=== PATIENT | male | born 1955 | race Caucasian/White ===

== ENCOUNTER 2017-05-08 07:10 | Day surgery (SDC) | payer OTHER ==
[~2017-05-08] VITALS: Ht 182.9 cm; Wt 86.2 kg
[~2017-05-08 07:10] MED LIST: 0.9% Sodium Chloride 1,000 ML IV SCH; ALBU8.5H2 INHALATION; ALPR0.5T8 PO; AMIT10TA6 PO; ASPI-973 PO; DOXA8TAB73 PO; FAMO40TA6 PO; LISI-567 PO; OXYC5TAB72 PO; PHEN-777 PO; Sodium Chloride LOK Flush 10 mL Syringe IV PRN; TAMS0.4C98 PO; fentaNYL-PF 50 mCg/mL 2 mL Inj IVPUSH PRN
[2017-05-08 07:33] VITALS: BP 142/73; PULSE 81; RESP 14; O2SAT 97
[2017-05-08] MEDS ORDERED: FINA5TAB9 PO (07:39)
[2017-05-08 08:44] VITALS: BP 106/65; PULSE 69; RESP 12; O2SAT 97
[2017-05-08 08:58] VITALS: BP 122/67; PULSE 67; RESP 12; O2SAT 97
--- NOTE | 2017-05-08 13:44 | ENDO ---
[address] [address] ENDOSCOPY PROCEDURE PATIENT: HAN ARIAS : 1955 MR#: [id number] ADMIT: 05/08/2017 JOB ID: [id number] PROCEDURE: Colonoscopy. INDICATION: Screening. Patient's ASA classification is II. Mallampati score is II. MEDICATIONS: 1. Versed 5 mg. 2. Fentanyl 100 mcg. INSTRUMENT USED: PCF-H190 L. PREPARATION QUALITY: Good. PROCEDURE DETAILS: After informed consent was obtained, the patient was brought into the GI suite, where he was placed on oxygen via nasal cannula and monitored with continuous pulse oximeter, telemetry, and blood pressure monitoring. A time-out was performed. Then, he was placed in a left lateral decubitus position and medications were administered for sedation. Digital rectal exam with palpation of the prostate was performed and was unremarkable. Colonoscope was then inserted into the rectum and advanced under direct visualization to the cecum, which was identified by the presence of the ileocecal valve and appendiceal orifice. Once the cecum was reached, colonoscope was withdrawn back into the rectum as the mucosa and lumen were examined. In the rectum, retroflexion was performed. Following retroflexion, remaining air in the rectum was suctioned. Procedure was completed. FINDINGS: 1. In the transverse colon, there was a diminutive polyp that was removed with cold biopsy forceps. 2. Scattered diverticula were seen throughout the sigmoid colon. As the colonoscope was withdrawn through the anal canal, small internal hemorrhoids were noted. IMPRESSION: 1. Small transverse colon polyp. 2. Scattered sigmoid diverticula. 3. Internal hemorrhoids. RECOMMENDATIONS: 1. Repeat colonoscopy pending polyp pathology results. 2. Fiber rich diet. COMPLICATIONS: None. ESTIMATED BLOOD LOSS: Less than 5 mL.
--- NOTE | 2017-05-12 16:57 | PATH ---
SURGICAL PATHOLOGY Attending Physician:Blaine Damico CASE STATUS: Signed Out PATIENT NAME: HAN ARIAS PID: [id number] : 1955 DATE COLLECTED:05/08/2017 16:31 SPECIMEN: Colon, Polyp CLINICAL HISTORY: 1). TRANSVERSE POLYP X1 FINAL DIAGNOSIS: 1.TRANSVERSE COLON POLYP, BIOPSY: TUBULAR ADENOMA. Additional step-sections are examined. ICD10 D12.3 GROSS DESCRIPTION: The specimen is received in one formalin filled container labeled with the patient's name, sublabeled "transverse polyp x1" and consists of 2 portions of tissue which aggregate to 0.3 x 0.2 x 0.2 CM. The specimen is entirely submitted in one cassette. 05/08/2017DC MICRO DESCRIPTION: See diagnosis. ICD-9 CODES: CPT CODES: 1: 70863 Electronically Signed Out Arvin Fuchs MD, Ph.D. [facility] [address], [place] [address] Technical component performed at [facility], [address] [place] [address] Ave[address], [place], [address]
== END 2017-05-08 23:59 | disposition home or self-care (01) ==
LOC: END 07:10
PROVIDERS: ATTEND Internal Medicine Gastroenterology
DX: Z12.11 Encounter for screening for malignant neoplasm of colon (principal); D12.3 Benign neoplasm of transverse colon; K57.30 Diverticulosis of large intestine without perforation or abscess without bleeding; K64.8 Other hemorrhoids; I10 Essential (primary) hypertension; F41.1 Generalized anxiety disorder; G89.29 Other chronic pain; N40.0 Benign prostatic hyperplasia without lower urinary tract symptoms; N41.1 Chronic prostatitis; J45.990 Exercise induced bronchospasm; Z79.891 Long term (current) use of opiate analgesic; Z79.82 Long term (current) use of aspirin; Z87.891 Personal history of nicotine dependence